=== PATIENT | female | born 1980 | race Caucasian/White ===

== ENCOUNTER 2020-02-07 20:01 | Emergency (ER) | payer MEDICAID ==
[~2020-02-07] VITALS: Ht 160 cm; Wt 56.0 kg
[2020-02-07] MEDS ORDERED: NORCO1 TA1 PO (21:02)
[2020-02-07] MEDS ORDERED: MOTRIN400 MG/TAB PO (21:03)
[2020-02-07] MEDS ORDERED: STOOL SOFTENER100 M1 PO (21:04)
[2020-02-07] MEDS ORDERED: ANTIBIOTIC (21:04)
[2020-02-07 21:30] VITALS: BP 155/82
[2020-02-07] MEDS ORDERED: GOLYTEL1 PO (21:47)
== END 2020-02-07 21:55 | disposition home or self-care (01) ==
LOC: ED 20:01
DX: O99.63 Diseases of the digestive system complicating the puerperium (principal); K59.01 Slow transit constipation